=== PATIENT | male | born 1990 | race Caucasian/White ===

== ENCOUNTER 2017-05-01 18:21 | Emergency (ER) | payer MEDICAID ==
[2017-05-01 18:37] VITALS: BP 130/105; PULSE 107; RESP 18; TEMP 98.1; O2SAT 96
--- NOTE | 2017-05-01 18:43 | EDPHY ---
H & P HPI/ROS: Patient arrived by private vehicle for evaluation of dyspnea and cough. He has a history of mild asthma in for the past 4 days has had a cough associated with low-grade subjective fevers and some night sweats. His girlfriend was recently diagnosed with bronchitis the thinks that his malady consist of bronchitis. He has been using his albuterol inhaler more frequently but still does not get complete relief. His most recent use of the albuterol MDI was 30 minutes prior to arrival. He reports a dry hacky cough associated with this. He also has associated wheezing. ROS: No high fevers or chills. No other constitutional symptoms. HEENT: Mild coryza. Mild sore throat. No dysphonia. No ear pain. Neuro: No headache Pulmonary: No pleuritic pain or respiratory distress. No hemoptysis. Cardiovascular: No heart palpitations or lightheadedness. No leg swelling or pain. GI: No nausea vomiting. 10 point ROS is otherwise negative. Past Medical/Surgical History: Mild asthma. Never admitted overnight for asthma. Smoking Status: Light smoker Physical Exam: Vitals sella notable for mild tachycardia and mild hypertension. Otherwise vitals are normal General Appearance: Alert, no distress. Eyes: Pupils equal and round no pallor or injection. ENT, Mouth: Mucous membranes moist. Respiratory: Minimal expiratory wheeze. No rales. No rhonchi. Cardiovascular: Regular rate and rhythm. No murmur gallop rub. No JVD. No calf swelling or tenderness. Neurological: GCS 15 Skin: Warm and dry, no rashes. Musculoskeletal: Neck is supple nontender. Extremities are symmetrical, full range of motion. Psychiatric: Mood and affect are normal DIFFERENTIAL DIAGNOSIS: After history and physical exam differential diagnosis was considered for asthma exacerbation, bronchitis, URI with cough Constitutional: Initial Vital Signs Temperature (C) 36.7 C 05/01/17 18:32 Heart Rate 107 H 05/01/17 18:32 Respiratory Rate 18 05/01/17 18:32 Blood Pressure 130/105 H 05/01/17 18:32 O2 Sat (%) 96 05/01/17 18:32 O2 Delivery Mode Room Air Allergies/Adverse Reactions: Sulfa (Sulfonamide Antibiotics) Allergy (Verified 08/01/16 15:34) Unknown Home Medications: Medication Instructions Recorded Albuterol Hfa Anes Only 07/18/15 Albuterol Hfa Anes Only [Proair 2 puffs IH Q4 PRN #1 mdi 05/01/17 Hfa Icu (*)] Albuterol [Proventil Neb] 3 ml IH Q4 PRN #25 deyvial 05/01/17 MDM/Departure - MDM Diagnostics: Peak flow on Arrival 450 with predicted of 622. Patient declines a neb but requests steroids. Given exposure to his girlfriend with bronchitis, per patient being a smoker and having associated subjective fevers, will cover him with macrolide antibiotic as well. I counseled regarding this. ED Course/Re-evaluation: Initial peak flow 450. Predicted 622. Patient had an albuterol neb shortly prior to arrival in declines further nebs here. He does request prednisone. There is currently significant environmental smoke from surrounding force viruses concern is asthma or some. Given lack of rhonchi or significant fevers, I doubt bacterial source of bronchitis and suspect either viral URI with asthma exacerbation that is mild or a viral bronchitis. I counseled regarding this. No clinical evidence to suggest lower respiratory infection currently. Prednisone 60 mg p.o. - Depart Disposition: Home, Routine, Self-Care Clinical Impression: Viral bronchitis Asthma Qualifiers: Asthma severity: mild persistent Asthma complication type: uncomplicated Qualified Code(s): J45.30 - Mild persistent asthma, uncomplicated Condition: Good Instructions: Asthma (ED), How to Stop Smoking (ED) Additional Instructions: Diagnosis: Viral bronchitis 2. Asthma Plan: Humidifier Albuterol inhaler with spacer-2 puffs every 2-4 hours as needed for cough, wheeze or shortness of breath or use your nebulizer. Prednisone as prescribed-take next dose after breakfast in the morning Guaifenesin mucolytic Quit smoking Follow up with primary care physician for any ongoing symptoms Return the emergency department for any significant worsening of your symptoms despite the treatment plan. Referrals: JESSICA ORTIZ,. [Primary Care Provider] - As per Instructions
[2017-05-01] MEDS ORDERED: predniSONE 20 MG TAB PO ONE (18:50)
== END 2017-05-01 19:04 | disposition home or self-care (01) ==
LOC: CED 18:21
DX: J45.30 Mild persistent asthma, uncomplicated (principal); J20.8 Acute bronchitis due to other specified organisms; F17.200 Nicotine dependence, unspecified, uncomplicated

== ENCOUNTER 2017-05-11 16:03 | Emergency (ER) | payer MEDICAID ==
[2017-05-11 16:21] VITALS: RESP 20; TEMP 97.9
[2017-05-11] MEDS ORDERED: IPRATROPIUM/ALBUTEROL 3 ML DEYVIAL IH ONE (16:44)
--- NOTE | 2017-05-11 16:55 | EDPHY ---
H & P Time Seen by Provider: 05/11/17 16:35 HPI/ROS: I saw this patient here 10 days ago for asthma exacerbation/asthmatic bronchitis and treated him with prednisone and albuterol. He reports that he is also compliant with his Advair inhaler. He explains that his symptoms improved on the initial treatment she include is 6 days of prednisone but after finishing the prednisone he reports recurrence of his symptoms and feels significant shortness of breath in the morning that improves with his inhaler. He is requiring albuterol inhaler use 3 times a day or more which is unusual for him. Abdomen quite some time since he had a any asthma symptoms prior to his last visit. He was exposed to his girlfriend diagnosed with bronchitis prior to the onset of his symptoms and he declined antibiotics during his last visit. He is an occasional smoker. However, he reports no smoking since the onset of this illness. ROS: No high fevers or chills or other constitutional symptoms HEENT: No nasal congestion. No sore throat. Pulmonary: No pleuritic pain. No respiratory distress. Cardiovascular: No heart palpitations. Mild bronchitic chest pain but no other chest pain. No leg swelling. GI: No GI symptoms Integumentary: No skin rash 7 point ROS is otherwise negative. Past Medical/Surgical History: Mild asthma Smoking Status: Light smoker Physical Exam: General Appearance: Alert, no distress. Eyes: Pupils equal and round no pallor or injection. ENT, Mouth: Mucous membranes moist. No drooling or stridor. No dysphonia. Oropharynx is clear Respiratory: Mild wheezing bilaterally. No rales. No respiratory distress. Cardiovascular: Regular rate and rhythm. Gastrointestinal: Abdomen is soft and nontender, no masses, bowel sounds normal. Neurological: GCS 15 with no focal deficits Skin: Warm and dry, no rashes. Musculoskeletal: Neck is supple nontender. Extremities are symmetrical, full range of motion. Psychiatric: Mood and affect are normal DIFFERENTIAL DIAGNOSIS: After history and physical exam differential diagnosis was considered for recurrence of asthma exacerbation, viral bronchitis, bacterial bronchitis, URI with cough Constitutional: Initial Vital Signs Temperature (C) 36.6 C 05/11/17 16:19 Heart Rate 98 05/11/17 16:19 Respiratory Rate 20 05/11/17 16:19 Blood Pressure 125/79 H 05/11/17 16:19 O2 Sat (%) 93 05/11/17 16:19 O2 Delivery Mode Room Air Allergies/Adverse Reactions: Sulfa (Sulfonamide Antibiotics) Allergy (Verified 05/11/17 16:09) Unknown Home Medications: Medication Instructions Recorded Albuterol Hfa Anes Only [Proair 2 puffs IH Q4 PRN #1 mdi 05/01/17 Hfa Icu (*)] Albuterol [Proventil Neb] 3 ml IH Q4 PRN #25 deyvial 05/01/17 Advair 250/50 (*) 05/11/17 Albuterol Hfa Anes Only [Proair 2 puffs IH Q4 PRN #1 mdi 05/11/17 Hfa Icu (*)] Azithromycin [Zithromax] 250 mg PO DAILY #6 tab 05/11/17 predniSONE 60 mg PO DAILY #16 tab 05/11/17 MDM/Departure - MDM Medications Given: Discontinued Medications Albuterol/Ipratropium (Duoneb) 3 ml IH EDNOW ONE Stop: 05/11/17 16:45 Last Admin: 05/11/17 16:52 Dose: 3 ml ED Course/Re-evaluation: Peak flow DuoNeb patient felt improvement in breathing after the DuoNeb with decreased wheezing and coughing. On repeat examination he has near resolution of his wheezing. I reiterated the importance of smoking cessation. Plan is to start oral prednisone, Zithromax antibiotic albuterol inhaler follow up with his primary care physician. I also provided number for the on-call statistical financial analyst-Thang Wolfe patient still has ongoing symptoms despite the treatment plan - Depart Disposition: Home, Routine, Self-Care Clinical Impression: Asthmatic bronchitis Qualifiers: Asthma severity: moderate persistent Asthma complication type: uncomplicated Qualified Code(s): J45.40 - Moderate persistent asthma, uncomplicated Condition: Good Instructions: Asthma (ED), How to Stop Smoking (ED), Acute Bronchitis (ED) Additional Instructions: Diagnoses: 1. Asthmatic bronchitis Plan: Quit smoking Continue albuterol inhaler 2 puffs every 4 hours a spacer as needed Prednisone course Continue Advair Zithromax antibiotic Return for any significant worsening despite treatment plan Consider follow-up with statistical financial analyst if her symptoms persist despite smoking cessation. Prescriptions: Albuterol Hfa Anes Only [Proair Hfa Icu (*)] 2 puffs IH Q4 PRN #1 mdi PRN Reason: Wheezing Azithromycin [Zithromax] 250 mg PO DAILY #6 tab predniSONE 60 mg PO DAILY #16 tab Referrals: JESSICA ORTIZ,. [Primary Care Provider] - As per Instructions Thang Wolfe MD [Medical Doctor] - As per Instructions
[2017-05-11 17:32] VITALS: BP 140/85; PULSE 101; O2SAT 95
== END 2017-05-11 17:32 | disposition home or self-care (01) ==
LOC: CED 16:03
DX: J45.40 Moderate persistent asthma, uncomplicated (principal); F17.200 Nicotine dependence, unspecified, uncomplicated

== ENCOUNTER 2018-09-04 15:44 | Emergency (ER) | payer MEDICAID ==
[2018-09-04] MEDS ORDERED: IBUPROFEN 600 MG TAB PO ONE (16:01)
--- NOTE | 2018-09-04 16:05 | EDPHY ---
H & P Stated Complaint: Body aches, feels feverish, sore throat, dry cough x 10 days Time Seen by Provider: 09/04/18 15:47 HPI/ROS: 27-year-old male presents complaining of sore throat, cough, fevers, runny nose , body aches that have been going on for approximately 10 days Review of systems As per HPI General positive fever positive chills no weakness HEENT no eye pain no eye discharge. No eye redness, positive sore throat Respiratory positive cough, no shortness of breath Cardiac no chest pain, no peripheral edema GI no abdominal pain, no diarrhea, no constipation, no nausea, no vomiting no flank pain, no hematuria, no dysuria Musculoskeletal positive myalgias, no joint pain Heme no easy bruising, no easy bleeding Endo no polyuria, no polydipsia Skin no rashes, no pruritus Neuro no syncope, no dizziness, no headaches Psych is no suicidal ideation, no homicidal ideation Source: Patient Exam Limitations: No limitations - Personal History Current Tetanus Diphtheria and Acellular Pertussis (TDAP): Yes Tetanus Vaccine Date: within 10 years - Medical/Surgical History Hx Asthma: Yes Hx Chronic Respiratory Disease: No Hx Diabetes: No Hx Cardiac Disease: No Hx Renal Disease: No Hx Cirrhosis: No Hx Alcoholism: No Hx HIV/AIDS: No Hx Splenectomy or Spleen Trauma: No Other PMH: med hx-ASTHMA, depression, appendectomy - Family History Significant Family History: No pertinent family hx - Social History Smoking Status: Former smoker Alcohol Use: Occasionally Drug Use: None - Physical Exam Exam: 27-year-old male alert Alert and oriented nontoxic appearance, no acute distress afebrile Atraumatic normocephalic Extraocular muscles intact, anicteric Nares mild yellowish discharge Oropharynx mild erythema with cobblestone appearance, no tonsillar swelling no exudate no uvular deviation, tolerating own secretions Neck supple small left anterior cervical lymphadenopathy Lungs clear to auscultation bilaterally Heart regular rate and rhythm Abdomen normoactive bowel sounds soft nontender Extremities no cyanosis clubbing or edema Skin no rash Constitutional: Initial Vital Signs Temperature (C) 36.9 C 09/04/18 15:50 Heart Rate 95 09/04/18 15:50 Respiratory Rate 16 09/04/18 15:50 Blood Pressure 141/87 H 09/04/18 15:50 O2 Sat (%) 94 09/04/18 15:50 O2 Delivery Mode Room Air Allergies/Adverse Reactions: Sulfa (Sulfonamide Antibiotics) Allergy (Verified 09/04/18 15:50) Unsure of reaction Home Medications: Medication Instructions Recorded Albuterol 09/04/18 Albuterol [Ventolin Hfa Inhaler] 2 puffs IH Q4 PRN #1 mdi 09/04/18 Azithromycin [Zithromax] 250 mg PO DAILY #6 tab 09/04/18 Lidocaine HCl [Lidocaine HCl 10 ml MM Q6 PRN #100 solution 09/04/18 Viscous] predniSONE 40 mg PO DAILY 5 Days #10 tab 09/04/18 Medical Decision Making - Diagnostics Imaging Results: Imaging Impressions Chest X-Ray 09/04/18 16:02 Impression: Features consistent with moderate perihilar bronchitis/RAD. ED Course/Re-evaluation: Patient seen and evaluated for cough, cold symptoms, sore throat approximately 10 days duration. Strep screen negative Influenza negative Chest [id number] Impression acute bronchitis, complicated by hx of asthma Plan Albuterol, prednisone burst, zpack, viscous lidocaine for throat pain Rest, drink plenty of liquids, symptomatic care Follow-up primary care Differential Diagnosis: differential diagnosis considered but not limited to: Pneumonia, bronchitis, URI, pharyngitis, influenza, streptococcal pharyngitis - Data Points Medications Given: Discontinued Medications Ibuprofen (Motrin) 600 mg PO EDNOW ONE Stop: 09/04/18 16:02 Last Admin: 09/04/18 16:09 Dose: 600 mg Lidocaine (Lidocaine 2% Viscous) 5 ml PO EDNOW ONE Stop: 09/04/18 16:47 Last Admin: 09/04/18 16:49 Dose: 5 ml Point of Care Test Results: Influenza PCR Flu Nasal Swab Collection Date 09/04/18 Flu Nasal Swab Collection Time 15:52 Influenza A Result Not Detected Influenza B Result Not Detected Strep Strep Throat Swab Collection 09/04/18 Date Strep Throat Swab Swab 15:52 Collection Time Strep Result Not Detected Departure - Departure Disposition: Home, Routine, Self-Care Clinical Impression: Acute pharyngitis, Bronchitis Condition: Good Instructions: Acute Bronchitis (ED) Referrals: Cruz Flor MD [Primary Care Provider] - As per Instructions Prescriptions: Albuterol [Ventolin Hfa Inhaler] 2 puffs IH Q4 PRN #1 mdi PRN Reason: Cough, Moderate Azithromycin [Zithromax] 250 mg PO DAILY #6 tab Lidocaine HCl [Lidocaine HCl Viscous] 10 ml MM Q6 PRN #100 solution PRN Reason: Pain, Moderate predniSONE 40 mg PO DAILY 5 Days #10 tab
[2018-09-04] MEDS ORDERED: LIDOCAINE 2% VISCOUS 15 ML UDCUP PO ONE (16:46)
[2018-09-04 17:12] VITALS: BP 132/85
== END 2018-09-04 17:08 | disposition home or self-care (01) ==
LOC: CED 15:44
DX: J40 Bronchitis, not specified as acute or chronic (principal); J02.9 Acute pharyngitis, unspecified; Z87.891 Personal history of nicotine dependence
CPT/HCPCS: 71046-PO; 99284-ER

== ENCOUNTER 2018-12-11 14:53 | Emergency (ER) | payer MEDICAID ==
[2018-12-11 15:06] VITALS: BP 127/87
--- NOTE | 2018-12-11 15:22 | EDPHY ---
H & P Time Seen by Provider: 12/11/18 15:01 HPI/ROS: This patient presents with pain to the region of the right ear/TMJ area. He states that he has had the pain for more than a week now and since that was not improving and he has a day off of work he said come in to rule out infection. He is also concerned about potential periodontitis as he has had tooth pain in the posterior lower molar prior to the onset of the pain in this region. 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 He has taken ibuprofen Tylenol with minimal improvement and notes no other exacerbating factors. Currently the pain is moderate intensity. He describes the nature the pain as achy. ROS: Constitutional: No fevers HEENT: No recent URI symptoms. No drainage from the right ear. No change in his right ear hearing. No recent facial trauma Musculoskeletal: No midline neck or back pain Integumentary: No skin rash. Neuro: No headache, confusion or other complaints 5 point review of symptoms is performed and otherwise negative with exception of pertinent positives and negatives listed in HPI and ROS Past Medical/Surgical History: [place] teeth were extracted few years ago. Otherwise healthy Social History: He denies drug use. He occasionally drinks alcohol. No IV drug use. Smoking Status: Light smoker Physical Exam: Physical Exam Vital signs are normal. General: No acute distress HEENT: Nose: Clear bilaterally. No sinus tenderness to percussion. Ears: External canals and tympanic membranes are clear with no erythema or abnormal findings bilaterally. Oropharynx: No erythema or exudates. No dysphonia. No drooling or stridor. He does have tenderness to the gingiva just posterior to lower molar the partially reproduces symptoms. He also have some tenderness at the TMJ with no clicking. No malocclusion. No other intraoral findings are present. Eyes: Pupils equal and react to light. Extraocular motions are intact. Neck: Supple with no meningismus. No lymphadenopathy Lungs: Clear to auscultation bilaterally with no rales, rhonchi or wheeze. No respiratory distress. Cardiac: Regular rate and rhythm with no murmur gallop or rub Skin: No rash or pallor. Neuro: Alert with no focal deficits noted. Initial differential diagnosis: Periodontitis, TMJ arthralgia, you irritation due to wearing an ear piece at work, dental caries Constitutional: Initial Vital Signs Temperature (C) 36.6 C 12/11/18 15:05 Heart Rate 92 12/11/18 15:05 Respiratory Rate 16 12/11/18 15:05 Blood Pressure 127/87 H 12/11/18 15:05 O2 Sat (%) 96 12/11/18 15:05 O2 Delivery Mode Room Air Allergies/Adverse Reactions: Sulfa (Sulfonamide Antibiotics) Allergy (Verified 12/11/18 15:04) Unsure of reaction Home Medications: Medication Instructions Recorded Albuterol 09/04/18 ALPRAZolam [Xanax 0.25 MG (*)] 12/11/18 Fluticasone/Salmeter 100/50Mcg 12/11/18 [Advair 100/50 (*)] Methocarbamol [Robaxin 750 mg (*)] 750 - 1,500 mg PO QID PRN #30 tab 12/11/18 Penicillin V Potassium [Penicillin 500 mg PO TID #30 tab 12/11/18 VK] MDM/Departure - [facility] ED Course/Re-evaluation: Discussion: Patient present with discomfort to the TMJ region as well as the periodontal region just posterior to the lower right molar. No evidence of Garrison's angina, abscess, otitis media otitis externa or other red flag findings. However given tenderness the gums adjacent to the posterior molar suspect he may have periodontitis as well as some TMJ arthralgia from grinding teeth. I counseled regarding this encouraged him to use a mouth guard at night , ibuprofen, Tylenol and Robaxin. Will also treat him with penicillin antibiotic encouraged him to follow up with primary care physician and dentist for any ongoing symptoms. - Depart Disposition: Home, Routine, Self-Care Clinical Impression: Periodontitis TMJ arthralgia Qualifiers: Laterality: right Qualified Code(s): M26.621 - Arthralgia of right temporomandibular joint Condition: Good Instructions: Temporomandibular Disorder (ED), Periodontal Disease (DC) Additional Instructions: Diagnosis: Periodontitis 2 TMJ arthralgia Plan: Try to reduce your stimulant intake Try a mouth guard at night in by these pharmacy. If they do not have a specific mouth care for TMJ disorder than consider athletic mouthpiece and night. Continue ibuprofen and Tylenol if needed Add methocarbamol muscle relaxant if needed. Follow-up with Ear primary care physician and with dentist if you have any ongoing symptoms despite treatment plan. Return for any significant worsening despite treatment plan Prescriptions: Methocarbamol [Robaxin 750 mg (*)] 750 - 1,500 mg PO QID PRN #30 tab PRN Reason: Muscle Spasms Penicillin V Potassium [Penicillin VK] 500 mg PO TID #30 tab Referrals: Cruz Flor MD [Primary Care Provider] - As per Instructions
== END 2018-12-11 15:25 | disposition home or self-care (01) ==
LOC: CED 14:53
DX: K05.6 Periodontal disease, unspecified (principal); M26.621 Arthralgia of right temporomandibular joint
CPT/HCPCS: 99284-ER